=== PATIENT | female | born 1985 | race Caucasian/White ===

== ENCOUNTER 2017-02-28 17:12 | Emergency (ER) | payer OTHER ==
[~2017-02-28] VITALS: Ht 170.2 cm; Wt 93.6 kg
[2017-02-28 17:18] VITALS: BP 149/100; PULSE 101; TEMP 36.5; O2SAT 99; Ht 170.2 cm; Wt 93.6 kg
[2017-02-28] MEDS ORDERED: AMOXICILLIN 250 MG CAP PO STA (17:35)
[2017-02-28] MEDS ORDERED: AMOX500C3 PO (17:44)
[2017-02-28] MEDS ORDERED: OSEL75CA23 PO (17:59)
[2017-02-28] MEDS ORDERED: MEDR150I IM (17:59)
--- NOTE | 2017-02-28 21:36 | EMERGENCY ROOM VISIT NOTE ---
History Report prepared by Miguelibcarlotta: Servando Wilkinson Under the Supervision of: Dr. Denis Jefferson D.O. First contact with patient: 17:20 Chief Complaint: HEARING LOSS Stated Complaint: PRESSURE IN BOTH EARS TO POINT OF HEARING LOSS History of Present Illness The patient is a 31 year old female who presents to the Emergency Room with complaints of constant hearing loss in her left ear that started at 1500 yesterday. She rates her discomfort as a 5/10 in severity. The patient states that she was experiencing influenza-like symptoms last week, including cough, fever, congestion, sorethroat and rhinorrhea. The patient states that she went to the doctor where she was tested for strep, which was negative. She reports the doctor gave her medication and treated her as if she had influenza. The patient states that she took Tylenol for her symptoms and her temperature was 99.5. She reports that she started to feel relieved of symptoms yesterday until she started to develop hearing loss in her left ear at 1500. The patient states that her left ear is not painful, but she reports that her right ear became painful, which she describes as a sharp sensation. The patient denies headache, change in vision, chest pain, shortness of breath, nausea, vomiting, diarrhea, pain with urination, and melena. She reports that her shots are up to date. Source of History: patient Onset: 1500 yesterday Position: ear (left) Symptom Intensity: 5/10 Quality: other (hearing loss) Timing: constant Associated Symptoms: + fevers (resolved), + sorethroat (resolved), + cough ( resolved), No headache, No chest pain, No SOB, No nausea, No vomiting, No melena , No diarrhea, No urinary symptoms Review of Systems See HPI for pertinent positives & negatives. A total of 10 systems reviewed and were otherwise negative. Past Medical & Surgical Medical Problems: (1) No known problems Family History Seizures Social History Smoking Status: Current Every Day Smoker Alcohol Use: none Drug Use: none Housing Status: lives with family Occupation Status: employed Current/Historical Medications Scheduled Amoxicillin (Amoxil), 500 MG PO TID Medroxyprogesterone Acetate (C (Depo-Provera Contraceptiv), 150 MG IM UD Oseltamivir Phosphate (Tamiflu), 75 MG PO BID Allergies Coded Allergies: No Known Allergies (Unverified , 12/20/13) Physical Exam Vital Signs Date Time Temp Pulse Resp B/P (MAP) Pulse Ox O2 Delivery O2 Flow Rate FiO2 02/28/17 17:54 02/28/17 17:18 36.5 101 16 149/100 99 Room Air Physical Exam GENERAL: Sitting up in bed, no distress, non-toxic, talking in full sentences. EYE EXAM: normal conjunctiva. EARS: Right TM erythematous and bulging. Left TM difficult to visualize secondary to cerumen. OROPHARYNX: no exudate, no erythema, lips, buccal mucosa, and tongue normal and mucous membranes are moist NECK: supple, no nuchal rigidity, no adenopathy, non-tender, negative Brudzinski 's sign. LUNGS: Clear to auscultation. Normal chest wall mechanics HEART: no murmurs, S1 normal and S2 normal ABDOMEN: abdomen soft, non-tender, normo-active bowel sounds, no masses, no rebound or guarding. BACK: Back is symmetrical on inspection and there is no deformity, no midline tenderness, no CVA tenderness. SKIN: no rashes and no bruising UPPER EXTREMITIES: upper extremities are grossly normal. LOWER EXTREMITIES: No pitting edema. NEURO EXAM: Normal sensorium, cranial nerves II-XII grossly intact, normal speech, no gross weakness of arms, no gross weakness of legs. Medical Decision & Procedures Medications Administered Medications (Trade) Dose Ordered Sig/Jesus Route Start Time Stop Time Status Last Admin Dose Admin Amoxicillin (Amoxil Cap) 500 mg NOW STAT PO 02/28/17 17:35 02/28/17 17:37 DC 02/28/17 17:53 500 MG ED Course ED COURSE: Vital signs were reviewed and showed tachycardic and hypertensive. The patients medical record was reviewed The above diagnostic studies were performed and reviewed. ED treatments and interventions as stated above. 1724: The patient was evaluated in room C10. A complete history and physical examination was performed. 1729: Upon reevaluation, the patient is resting comfortably. I discussed the findings and the treatment plan with the patient. She verbalizes agreement and understanding. The patient was discharged home. 1735: Ordered Amoxicillin 500 mg PO. Medical Decision Differential diagnosis: Etiologies such as viral syndrome, otitis, pharyngitis, pneumonia, influenza, meningitis, urinary tract infection, sepsis, bacteremia, as well as others were entertained. Patient is a 31-year-old female who was recently diagnosed with influenza and placed on Tamiflu. Her upper respiratory symptoms have been improving. Currently she is now unable to hear out of her ears feels congestion. On exam left TM has a large cerumen impaction. Right TM is erythematous and bulging. There is a clear otitis media. I do favor the decrease in hearing is secondary to the fluid behind her ears. I was unable to truly visualize the left TM secondary to cerumen impaction. Based on this patient was placed on Augmentin and discharged to follow-up as an outpatient. Discussed with Pt concerning signs and symptoms to watch out for. Pt was instructed to follow up with their PCP and discussed with the patient their option to return to the ED at anytime for persistent or worsening symptoms. The appropriate anticipatory guidance and out-patient management, including indications for return to the emergency department, were explained at length to the patient and understood. Medication Reconcilliation Current Medication List: was personally reviewed by me Blood Pressure Screening Patient's blood pressure: Elevated blood pressure Blood pressure disposition: Elevated BP felt to be situational Impression Primary Impression: Otitis media Additional Impression: Viral URI with cough Scribe Attestation The scribe's documentation has been prepared under my direction and personally reviewed by me in its entirety. I confirm that the note above accurately reflects all work, treatment, procedures, and medical decision making performed by me. Departure Information Dispostion Home / Self-Care Prescriptions Amoxicillin (AMOXIL) 500 Mg Cap 500 MG PO TID, #30 CAP Prov: Denis Jefferson, DO 02/28/17 Referrals No Doctor, Assigned (PCP) Forms HOME CARE DOCUMENTATION FORM, IMPORTANT VISIT INFORMATION, WORK / SCHOOL INSTRUCTIONS Patient Instructions ED Otitis Media Serous Adult, ED URI Viral, My [facility] Additional Instructions Please follow up with your primary care doctor with in the next 24 hours. Any worsening of your symptoms, please return to the ED immediately. This includes any fevers greater than 100.4, worsening pain, chest pain, shortness breath, persistent nausea, vomiting, unable to eat or drink, or any other concerning signs or symptoms from your standpoint. Please take Tylenol or Motrin as needed for fevers. Please take antibiotics as prescribed. Problem Qualifiers Primary Impression: Otitis media Otitis media type: unspecified Chronicity: acute Qualified Codes: H66.90 - Otitis media, unspecified, unspecified ear
== END 2017-02-28 17:55 | disposition home or self-care (01) ==
LOC: C.EDB 17:14 → C.EDC 17:55
DX: H66.91 Otitis media, unspecified, right ear (principal); H61.22 Impacted cerumen, left ear; J06.9 Acute upper respiratory infection, unspecified; F17.200 Nicotine dependence, unspecified, uncomplicated; Z79.3 Long term (current) use of hormonal contraceptives; Z82.0 Family history of epilepsy and other diseases of the nervous system

== ENCOUNTER 2017-04-14 07:10 | Emergency (ER) | payer OTHER ==
[~2017-04-14] VITALS: Ht 170.2 cm; Wt 97.6 kg
[~2017-04-14 07:10] MED LIST: MEDR150I IM; OSEL75CA23 PO
[2017-04-14 07:12] VITALS: Ht 170.2 cm; Wt 97.6 kg
--- NOTE | 2017-04-14 08:11 | DIAGNOSTIC IMAGING REPORT ---
CHEST 2 VIEWS ROUTINE HISTORY: 31 years-old Female cough, fever acute cough and fever with atypical chest pain COMPARISON: Chest radiograph 12/18/2008 TECHNIQUE: PA and lateral views of the chest FINDINGS: Cardiomediastinal and hilar silhouettes are within normal limits. No pneumothorax, pleural effusion, focal airspace consolidation or overt pulmonary edema. The bones of the chest appear grossly intact. IMPRESSION: No acute process. The above report was generated using voice recognition software. It may contain grammatical, syntax or spelling errors. Electronically signed by: Thom Will M.D. 04/14/2017 8:09 AM Dictated Date/Time: 04/14/2017 8:01 AM
[2017-04-14] MEDS ORDERED: VNTHFA/IN INH (08:24)
[2017-04-14] MEDS ORDERED: DOXY100C PO (08:24)
[2017-04-14 08:44] VITALS: BP 141/90; PULSE 88; TEMP 36.9; O2SAT 98
--- NOTE | 2017-04-14 15:47 | EMERGENCY ROOM VISIT NOTE ---
History First contact with patient: 07:17 Chief Complaint: SHORTNESS OF BREATH Stated Complaint: SOB,PAIN IN LUNG AREA Nursing Triage Summary: flu dx mid Bob now has cold "setled in chest" pt has productive cough with clear to yellow sputum pt becomes short of breath when has coughing spells History of Present Illness The patient is a 31 year old female who presents to the Emergency Room with complaints of "a cold in my chest". The patient reports that she was diagnosed with influenza approximately 3-1/2-4 weeks ago. She completed a course of Tamiflu with improvement. The patient reports that she now has developed a cough again over the past 4-5 days. She reports that the sputum is clear to yellowish in color. She does report some mild shortness of breath after coughing spells. The patient denies any prior history of asthma. She has not noticed any wheezing. The patient denies any current fevers or chills, nausea, myalgias, headache or GI symptoms. She rates her overall discomfort a 3 out of 10. Review of Systems 10 system review was performed and was negative except for pertinent positives and negatives as indicated in history of present illness Past Medical/Surgical History Medical Problems: (1) No known problems Family History Seizures Social History Smoking Status: Current Every Day Smoker Alcohol Use: none Drug Use: none Housing Status: lives with family Occupation Status: employed Current/Historical Medications Scheduled Albuterol Hfa (Ventolin Hfa), 2 PUFFS INH QID Doxycycline Hyclate (Vibramycin), 100 MG PO BID Medroxyprogesterone Acetate (C (Depo-Provera Contraceptiv), 150 MG IM UD Physical Exam Vital Signs Date Time Temp Pulse Resp B/P (MAP) Pulse Ox O2 Delivery O2 Flow Rate FiO2 04/14/17 08:44 36.9 88 18 141/90 98 04/14/17 07:12 98 Room Air 04/14/17 07:12 36.9 106 20 141/90 98 Room Air Physical Exam CONSTITUTIONAL: Healthy and well nourished. Alert and oriented X 3 with positive affect. Patient does not appear in any acute respiratory distress. HEENT: Normocephalic, atraumatic. Pupils equal, round and reactive. Ears and nares are clear. OROPHARYNX: Minimal posterior pharyngeal erythema without tonsillar hypertrophy or exudates. NECK: Full active range of motion without discomfort. RESPIRATORY: Clear to auscultation bilaterally with no wheezing, crackles, rhonchi or stridor. CARDIOVASCULAR: Regular rate and rhythm with no murmurs, rubs or gallops. GASTROINTESTINAL: Bowel sounds present in all quadrants. Soft and nontender to palpation. MUSCULOSKELETAL: Full range of motion of all joints without discomfort. INTEGUMENTARY: No rash or other significant dermatologic conditions noted. HEMATOLOGIC: No ecchymosis or petechiae noted. NEUROLOGIC: No focal neurologic deficits noted. Medical Decision & Procedures ER Provider Diagnostic Interpretation: My interpretation of a two-view chest x-ray does not show any consolidations, pneumothorax or cardiomegaly. Radiologist report is as follows: CHEST 2 VIEWS ROUTINE HISTORY: 31 years-old Female cough, fever acute cough and fever with atypical chest pain COMPARISON: Chest radiograph 12/18/2008 TECHNIQUE: PA and lateral views of the chest FINDINGS: Cardiomediastinal and hilar silhouettes are within normal limits. No pneumothorax, pleural effusion, focal airspace consolidation or overt pulmonary edema. The bones of the chest appear grossly intact. IMPRESSION: No acute process. ED Course Patient history and physical exam were performed. Nurse's notes were reviewed. Vital signs were reviewed, showing an elevated blood pressure of 141/90. Pulse rate is 106 with an O2 saturation of 98% on room air. She does not appear in any acute respiratory distress. A two-view chest x-ray was normal. At this point, I elected to treat the patient with doxycycline antibiotics. The patient was also prescribed a Ventolin inhaler. An AeroChamber was provided from the emergency department, with instructions for its use. The patient was provided additional instructions for symptomatic relief. She was encouraged to follow-up with her PCP if symptoms are not improving within the next week. Turn to the emergency department for any significantly worsening symptoms. The patient was happy with plan of care, voice understanding of all discharge instructions, and denied any significant discomfort at the time of discharge. Medical Decision Blood Pressure Screening Patient's blood pressure: Elevated blood pressure Blood pressure disposition: Elevated BP felt to be situational Impression Primary Impression: Acute bronchitis Departure Information Prescriptions Albuterol Hfa (VENTOLIN HFA) 200 Puffs/[id number] Mcg Aers 2 PUFFS INH QID, #1 INHALER Prov: Bg Dave PA 04/14/17 Doxycycline Hyclate (VIBRAMYCIN) 100 Mg Cap 100 MG PO BID for 10 Days, #20 CAP Prov: Bg Dave PA 04/14/17 Referrals No Doctor, Assigned (PCP) Patient Instructions [facility] Problem Qualifiers Primary Impression: Acute bronchitis Bronchitis organism: unspecified organism Qualified Codes: J20.9 - Acute bronchitis, unspecified
== END 2017-04-14 08:40 | disposition home or self-care (01) ==
LOC: C.EDB 07:11 → C.EDA 08:40
DX: J20.9 Acute bronchitis, unspecified (principal); Z79.899 Other long term (current) drug therapy; Z82.0 Family history of epilepsy and other diseases of the nervous system; F17.200 Nicotine dependence, unspecified, uncomplicated